=== PATIENT | female | born 1955 | race Caucasian/White ===

== ENCOUNTER → 2016-04-18 | Outpatient (CLI) | payer OTHER | LOC: MMPC 09:00 | PROVIDERS: ATTEND Internal Medicine | DX: Z79.01 Long term (current) use of anticoagulants (principal); Z51.81 Encounter for therapeutic drug level monitoring; Z86.711 Personal history of pulmonary embolism | CPT/HCPCS: 85610 ==

== ENCOUNTER → 2016-04-25 | Outpatient (CLI) | payer OTHER ==
[2016-04-25 10:58] LABS: BUN/CREATININE RATIO 31.66 (6-20); CALCIUM 9.5 mg/dL (8.7-10.7); CREATININE 1.2 mg/dL (0.50-1.20); POTASSIUM 4.8 meq/L (3.8-5.2)
== END ==
LOC: LAB 10:26
PROVIDERS: ATTEND Internal Medicine
DX: I50.9 Heart failure, unspecified (principal)
CPT/HCPCS: 36415; 80048; 83880

== ENCOUNTER → 2016-05-20 | Outpatient (CLI) | payer OTHER | LOC: MMPC 09:00 | PROVIDERS: ATTEND Internal Medicine | DX: Z79.01 Long term (current) use of anticoagulants (principal); Z51.81 Encounter for therapeutic drug level monitoring; Z86.711 Personal history of pulmonary embolism | CPT/HCPCS: 85610 ==

== ENCOUNTER → 2016-07-18 | Outpatient (CLI) | payer OTHER | LOC: MMPC 09:00 | PROVIDERS: ATTEND Internal Medicine | DX: Z79.01 Long term (current) use of anticoagulants (principal); Z51.81 Encounter for therapeutic drug level monitoring; Z86.711 Personal history of pulmonary embolism | CPT/HCPCS: 85610 ==

== ENCOUNTER → 2016-07-23 | Outpatient (CLI) | payer OTHER ==
[2016-07-23 09:40] LABS: BASOPHILS # (AUTO) 0.01 10*3/UL; BASOPHILS % (AUTO) 0.2 % (0-1); EOSINOPHILS % (AUTO) 1.8 % (0-8); HEMOGLOBIN 11.5 g/dL (12.0-16.0); LYMPHOCYTES # (AUTO) 1.59 10*3/uL; MEAN CORPUSCULAR HEMOGLOBIN 29.2 PG (27-31); MEAN CORPUSCULAR HGB CONC 31.1 g/dL (33-37); MEAN CORPUSCULAR VOLUME 93.9 FL (81-99); MEAN PLATELET VOLUME 9.7 FL (7.4-12.2); MONOCYTES # (AUTO) 0.48 10*3/UL (0.3-0.8); MONOCYTES % (AUTO) 8.7 % (5-15); NEUTROPHILS # (AUTO) 3.35 10*3/UL; NEUTROPHILS % (AUTO) 60.4 % (50-80); RED BLOOD COUNT 3.94 10^6/uL (4.20-5.40)
[2016-07-23 10:31] LABS: PLATELET MORPHOLOGY COMMENT NORMAL MORPHOLOGY (NORM); RBC MORPHOLOGY COMMENT NORMAL MORPHOLOGY (NORM); WBC MORPHOLOGY COMMENT NORMAL MORPHOLOGY (NORM)
[2016-07-23 11:01] LABS: CALCIUM 9.4 mg/dL (8.7-10.7); SERUM ALBUMIN 3.8 g/dL (3.5-4.8)
[2016-07-23 12:44] LABS: FERRITIN 43.1 ng/mL (12.00-336.70)
== END ==
LOC: LAB 09:26
PROVIDERS: ATTEND Internal Medicine
DX: I50.9 Heart failure, unspecified (principal); I48.91 Unspecified atrial fibrillation; G47.33 Obstructive sleep apnea (adult) (pediatric); E61.1 Iron deficiency; E03.9 Hypothyroidism, unspecified
CPT/HCPCS: 36415; 80053; 82728; 83880; 84443; 85025

== ENCOUNTER → 2016-07-24 | Outpatient (CLI) | payer OTHER | LOC: MMPC 11:11 | PROVIDERS: ATTEND Internal Medicine | DX: I50.9 Heart failure, unspecified (principal); I89.0 Lymphedema, not elsewhere classified; E66.01 Morbid (severe) obesity due to excess calories; G47.33 Obstructive sleep apnea (adult) (pediatric); J43.9 Emphysema, unspecified; I48.91 Unspecified atrial fibrillation; Z86.711 Personal history of pulmonary embolism | CPT/HCPCS: 99214; G0463 ==

== ENCOUNTER → 2016-08-15 | Outpatient (CLI) | payer OTHER | LOC: MMPC 09:00 | PROVIDERS: ATTEND Internal Medicine | DX: Z79.01 Long term (current) use of anticoagulants (principal); Z51.81 Encounter for therapeutic drug level monitoring; Z86.711 Personal history of pulmonary embolism | CPT/HCPCS: 85610 ==

== ENCOUNTER → 2016-08-26 | Outpatient (CLI) | payer OTHER ==
[2016-08-26 09:53] LABS: BUN/CREATININE RATIO 51.53 (6-20); CALCIUM 9.5 mg/dL (8.7-10.7); SERUM ALBUMIN 3.9 g/dL (3.5-4.8)
== END ==
LOC: LAB 09:14
PROVIDERS: ATTEND Internal Medicine
DX: I50.9 Heart failure, unspecified (principal)
CPT/HCPCS: 36415; 80053; 83880

== ENCOUNTER → 2016-08-27 | Outpatient (CLI) | payer OTHER | LOC: MMPC 09:00 | PROVIDERS: ATTEND Internal Medicine | DX: Z79.01 Long term (current) use of anticoagulants (principal); Z51.81 Encounter for therapeutic drug level monitoring; I48.91 Unspecified atrial fibrillation | CPT/HCPCS: 85610; 99214 ==

== ENCOUNTER → 2016-09-05 | Outpatient (CLI) | payer OTHER | LOC: MMPC 09:00 | PROVIDERS: ATTEND Internal Medicine | DX: Z79.01 Long term (current) use of anticoagulants (principal); Z51.81 Encounter for therapeutic drug level monitoring; I48.91 Unspecified atrial fibrillation | CPT/HCPCS: 85610 ==

== ENCOUNTER → 2016-09-12 | Outpatient (CLI) | payer OTHER | LOC: MMPC 09:00 | PROVIDERS: ATTEND Internal Medicine | DX: Z79.01 Long term (current) use of anticoagulants (principal); Z51.81 Encounter for therapeutic drug level monitoring; Z86.711 Personal history of pulmonary embolism | CPT/HCPCS: 85610 ==

== ENCOUNTER → 2016-09-26 | Outpatient (CLI) | payer OTHER | LOC: MMPC 09:00 | PROVIDERS: ATTEND Internal Medicine | DX: Z79.01 Long term (current) use of anticoagulants (principal); Z51.81 Encounter for therapeutic drug level monitoring; Z86.711 Personal history of pulmonary embolism | CPT/HCPCS: 85610 ==

== ENCOUNTER → 2016-10-24 | Outpatient (CLI) | payer OTHER | LOC: MMPC 09:00 | PROVIDERS: ATTEND Internal Medicine | DX: Z79.01 Long term (current) use of anticoagulants (principal); Z51.81 Encounter for therapeutic drug level monitoring; I48.91 Unspecified atrial fibrillation; Z86.711 Personal history of pulmonary embolism | CPT/HCPCS: 85610 ==

== ENCOUNTER → 2016-10-31 | Outpatient (CLI) | payer OTHER | LOC: MMPC 09:00 | PROVIDERS: ATTEND Internal Medicine | DX: Z79.01 Long term (current) use of anticoagulants (principal); Z51.81 Encounter for therapeutic drug level monitoring; I48.91 Unspecified atrial fibrillation | CPT/HCPCS: 85610 ==

== ENCOUNTER → 2016-11-14 | Outpatient (CLI) | payer OTHER | LOC: MMPC 09:00 | PROVIDERS: ATTEND Internal Medicine | DX: Z79.01 Long term (current) use of anticoagulants (principal); Z51.81 Encounter for therapeutic drug level monitoring; I48.91 Unspecified atrial fibrillation; Z86.711 Personal history of pulmonary embolism | CPT/HCPCS: 85610 ==

== ENCOUNTER → 2016-11-21 | Outpatient (CLI) | payer OTHER | LOC: MMPC 09:00 | PROVIDERS: ATTEND Internal Medicine | DX: Z79.01 Long term (current) use of anticoagulants (principal); Z51.81 Encounter for therapeutic drug level monitoring; I48.91 Unspecified atrial fibrillation | CPT/HCPCS: 85610 ==

== ENCOUNTER 2019-01-12 13:05 | Inpatient (IN) ==
[2019-01-12] MEDS ORDERED: Sodium Chloride 0.9% 1,000 ML PRIMARY IV ONE (13:52)
[2019-01-12 14:08] LABS: VENOUS PH 7.27 (7.32-7.42)
[2019-01-12 14:16] LABS: Hematocrit [HCT] 37.9 % (37.0-47.0); Hemoglobin [HGB] 11.9 g/dL (12.0-16.0); MEAN CORPUSCULAR HGB CONC 31.4 g/dL (33-37); MEAN CORPUSCULAR VOLUME 96.4 FL (81-99); MEAN PLATELET VOLUME 10.3 FL (7.4-12.2); NEUTROPHILS % (AUTO) 70.7 % (50-80); RED BLOOD COUNT 3.93 10^6/uL (4.20-5.40)
[2019-01-12 14:17] LABS: BASOPHILS # (AUTO) 0.01 10*3/UL; BASOPHILS % (AUTO) 0.1 % (0-1); EOSINOPHILS # (AUTO) 0.18 10*3/UL; EOSINOPHILS % (AUTO) 2.4 % (0-8); LYMPHOCYTES # (AUTO) 1.43 10*3/uL; MONOCYTES # (AUTO) 0.54 10*3/UL (0.3-0.8); MONOCYTES % (AUTO) 7.3 % (5-15); NEUTROPHILS # (AUTO) 5.21 10*3/UL; PLATELET MORPHOLOGY COMMENT NORMAL MORPHOLOGY (NORM); RBC MORPHOLOGY COMMENT NORMAL MORPHOLOGY (NORM); WBC MORPHOLOGY COMMENT NORMAL MORPHOLOGY (NORM)
[2019-01-12 14:18] LABS: BILIRUBIN,URINE NEGATIVE (NEG); CLARITY,URINE CLEAR (CLEAR); COLOR,URINE YELLOW (Y); GLUCOSE, URINE (UA) NEGATIVE (NEG); OCCULT BLOOD,URINE Trace-intact (NEG); PROTEIN,URINE NEGATIVE (NEG); SERUM ALBUMIN 4.3 g/dL (3.5-4.8); UROBILINOGEN,URINE 0.2 EU/dL (0.2)
[2019-01-12 14:28] LABS: BACTERIA,URINE RARE; RBC,URINE 0 /hpf; SQUAMOUS EPITHELIAL CELL,UR FEW; URINE SAMPLE TYPE CLEAN CATCH URINE
[2019-01-12] MEDS ORDERED: ACETAMINOPHEN 325 MG TABLET PO PRN (18:23)
[2019-01-12] MEDS ORDERED: LIDOCAINE W/ SODIUM BICARB 0.5 ML SYR SUBD PRN (18:23)
[2019-01-12] MEDS ORDERED: ONDANSETRON 4 MG/2 ML VIAL IVP PRN (18:23)
[2019-01-12] MEDS ORDERED: DOCUSATE 100 MG CAPSULE PO PRN (18:23)
[2019-01-12] MEDS ORDERED: FLUTICASONE/SALMETEROL 500/50 UD INHALER INH PRN (18:23)
[2019-01-12] MEDS ORDERED: LEVOTHYROXINE SODIUM 150 MCG PO SCH (18:23)
[2019-01-12] MEDS ORDERED: CALCIUM CARBONATE 500 MG (TUMS) CHEWABLE TABLET PO PRN (18:23)
[2019-01-12 21:04] LABS: BUN/CREATININE RATIO 33.33 (6-20); SERUM ALBUMIN 3.6 g/dL (3.5-4.8)
[2019-01-12] MEDS: Apixaban 5 MG TABLET PO SCH (21:15)
[2019-01-12] MEDS: CARVEDILOL 12.5 MG TABLET PO SCH (21:15)
[2019-01-12] MEDS: Sodium Chloride 0.9% 1,000 ML PRIMARY IV SCH (21:15)
[2019-01-12] MEDS ORDERED: FLUTICASONE/SALMETEROL 500/50 UD INHALER INH ONE (21:59)
[2019-01-13] MEDS ORDERED: Levothyroxine Sodium 100 MCG, Levothyroxine Sodium 50 MCG PO SCH ×2 (05:30)
[2019-01-13 05:37] LABS: BUN/CREATININE RATIO 34.54 (6-20); SERUM ALBUMIN 3.7 g/dL (3.5-4.8)
[2019-01-13] MEDS ORDERED: FLUTICASONE/SALMETEROL 500/50 UD INHALER INH SCH (07:00)
[2019-01-13 07:11] VITALS: BP 106/55; RESP 16; TEMP 97.9; O2SAT 99
[2019-01-13] MEDS: Sodium Chloride 0.9% 1,000 ML PRIMARY IV SCH (07:43)
[2019-01-13] MEDS ORDERED: FERROUS SULFATE 325 MG TABLET PO SCH (09:00)
[2019-01-13] MEDS ORDERED: ASPIRIN 325 MG TABLET PO SCH (09:00)
[2019-01-13] MEDS: Apixaban 5 MG TABLET PO SCH (09:30)
[2019-01-13] MEDS: CARVEDILOL 12.5 MG TABLET PO SCH (09:30)
[2019-01-13] MEDS ORDERED: Influenza 19-20 Vaccine (6mo+) 60 MCG/0.5 ML SYRINGE IM ONE (10:46)
== END 2019-01-13 11:42 | disposition home or self-care (01) | DRG 641 ==
LOC: ER 13:05 → MED/SURG 17:07
PROVIDERS: ADMIT Internal Medicine; ATTEND Internal Medicine

== ENCOUNTER 2019-01-17 03:12 | Inpatient (IN) ==
[2019-01-17 04:37] LABS: VENOUS PH 7.29 (7.32-7.42)
[2019-01-17 04:49] LABS: BASOPHILS # (AUTO) 0.01 10*3/UL; BASOPHILS % (AUTO) 0.1 % (0-1); EOSINOPHILS % (AUTO) 1.4 % (0-8); Hematocrit [HCT] 30.4 % (37.0-47.0); Hemoglobin [HGB] 10.2 g/dL (12.0-16.0); LYMPHOCYTES # (AUTO) 0.74 10*3/uL; MEAN CORPUSCULAR HGB CONC 33.6 g/dL (33-37); MEAN CORPUSCULAR VOLUME 93.3 FL (81-99); MEAN PLATELET VOLUME 9.6 FL (7.4-12.2); MONOCYTES # (AUTO) 0.49 10*3/UL (0.3-0.8); MONOCYTES % (AUTO) 6.7 % (5-15); NEUTROPHILS # (AUTO) 5.95 10*3/UL; PLATELET MORPHOLOGY COMMENT NORMAL MORPHOLOGY (NORM); RBC MORPHOLOGY COMMENT NORMAL MORPHOLOGY (NORM); RED BLOOD COUNT 3.26 10^6/uL (4.20-5.40); WBC MORPHOLOGY COMMENT NORMAL MORPHOLOGY (NORM)
[2019-01-17 04:51] LABS: BLOOD UREA NITROGEN 17 mg/dL (7-22); BUN/CREATININE RATIO 18.88 (6-20); SERUM ALBUMIN 3.6 g/dL (3.5-4.8)
[2019-01-17 05:23] LABS: Erythrocyte Sediment Rate 33 MM/HR (0-20)
[2019-01-17] MEDS ORDERED: FLUTICASONE/SALMETEROL 500/50 UD INHALER INH PRN (08:58)
[2019-01-17] MEDS ORDERED: CALCIUM CARBONATE 500 MG (TUMS) CHEWABLE TABLET PO PRN (09:04)
[2019-01-17] MEDS ORDERED: ONDANSETRON 4 MG/2 ML VIAL IVP PRN (09:04)
[2019-01-17] MEDS ORDERED: DOCUSATE 100 MG CAPSULE PO PRN (09:04)
[2019-01-17] MEDS ORDERED: LIDOCAINE W/ SODIUM BICARB 0.5 ML SYR SUBD PRN (09:04)
[2019-01-17] MEDS: ACETAMINOPHEN 325 MG TABLET PO PRN ×2 (11:05→19:35)
[2019-01-17] MEDS: CARVEDILOL 12.5 MG TABLET PO SCH ×2 (11:06→21:39)
[2019-01-17] MEDS: ASPIRIN 325 MG TABLET PO SCH (11:06)
[2019-01-17] MEDS: Apixaban 5 MG TABLET PO SCH ×2 (11:06→21:39)
[2019-01-17] MEDS: FERROUS SULFATE 325 MG TABLET PO SCH (11:06)
[2019-01-17] MEDS: FUROSEMIDE 20 MG TABLET PO SCH ×2 (11:13→13:54)
[2019-01-17] MEDS: UMECLIDINIUM BROMIDE INH SCH (13:15)
[2019-01-17] MEDS: FLUTICASONE/SALMETEROL 500/50 UD INHALER INH SCH (19:05)
[2019-01-18] MEDS: ACETAMINOPHEN 325 MG TABLET PO PRN ×4 (03:25→21:10)
[2019-01-18 05:17] LABS: BLOOD UREA NITROGEN 14 mg/dL (7-22); BUN/CREATININE RATIO 15.55 (6-20)
[2019-01-18] MEDS: LEVOTHYROXINE 100 MCG TABLET PO SCH (05:24)
[2019-01-18] MEDS: FLUTICASONE/SALMETEROL 500/50 UD INHALER INH SCH ×2 (06:46→19:20)
[2019-01-18] MEDS: FUROSEMIDE 20 MG TABLET PO SCH ×2 (06:52→13:07)
[2019-01-18] MEDS: UMECLIDINIUM BROMIDE INH SCH ×2 (08:11→09:23)
[2019-01-18] MEDS: FERROUS SULFATE 325 MG TABLET PO SCH (08:39)
[2019-01-18] MEDS: Apixaban 5 MG TABLET PO SCH ×2 (08:39→21:03)
[2019-01-18] MEDS: ASPIRIN 325 MG TABLET PO SCH (08:39)
[2019-01-18] MEDS: CARVEDILOL 12.5 MG TABLET PO SCH ×2 (08:39→21:02)
[2019-01-18] MEDS: NYSTATIN 15 GM POWDER TOPICAL SCH ×2 (15:20→21:02)
[2019-01-19] MEDS: LEVOTHYROXINE 100 MCG TABLET PO SCH (05:37)
[2019-01-19] MEDS: ACETAMINOPHEN 325 MG TABLET PO PRN ×3 (05:40→19:36)
[2019-01-19] MEDS: FLUTICASONE/SALMETEROL 500/50 UD INHALER INH SCH ×2 (06:50→19:24)
[2019-01-19] MEDS: FUROSEMIDE 20 MG TABLET PO SCH ×2 (07:08→12:49)
[2019-01-19] MEDS: CARVEDILOL 12.5 MG TABLET PO SCH ×2 (09:08→20:17)
[2019-01-19] MEDS: NYSTATIN 15 GM POWDER TOPICAL SCH ×3 (09:08→23:58)
[2019-01-19] MEDS: Apixaban 5 MG TABLET PO SCH ×2 (09:08→20:18)
[2019-01-19] MEDS: FERROUS SULFATE 325 MG TABLET PO SCH ×2 (09:08→23:58)
[2019-01-19] MEDS: ASPIRIN 325 MG TABLET PO SCH (09:08)
[2019-01-19] MEDS: UMECLIDINIUM BROMIDE INH SCH (09:11)
[2019-01-20] MEDS: ACETAMINOPHEN 325 MG TABLET PO PRN ×3 (04:07→20:05)
[2019-01-20] MEDS: LEVOTHYROXINE 100 MCG TABLET PO SCH (05:43)
[2019-01-20] MEDS: FLUTICASONE/SALMETEROL 500/50 UD INHALER INH SCH ×2 (06:37→20:38)
[2019-01-20] MEDS: UMECLIDINIUM BROMIDE INH SCH (06:37)
[2019-01-20] MEDS: FUROSEMIDE 20 MG TABLET PO SCH ×2 (06:50→13:24)
[2019-01-20] MEDS: CARVEDILOL 12.5 MG TABLET PO SCH ×2 (09:00→20:05)
[2019-01-20] MEDS: Apixaban 5 MG TABLET PO SCH ×2 (09:01→20:06)
[2019-01-20] MEDS: ASPIRIN 325 MG TABLET PO SCH (09:01)
[2019-01-20] MEDS: FERROUS SULFATE 325 MG TABLET PO SCH ×2 (09:01→20:05)
[2019-01-20 11:17] LABS: BLOOD UREA NITROGEN 13 mg/dL (7-22); BUN/CREATININE RATIO 16.25 (6-20)
[2019-01-20] MEDS: NYSTATIN 15 GM POWDER TOPICAL SCH ×3 (11:36→20:06)
[2019-01-20] MEDS ORDERED: CHOLECALCIFEROL 1000 IU TABLET PO ONE (12:43)
[2019-01-21] MEDS: ACETAMINOPHEN 325 MG TABLET PO PRN ×2 (03:14→17:30)
[2019-01-21] MEDS: LEVOTHYROXINE 100 MCG TABLET PO SCH (05:44)
[2019-01-21] MEDS: FUROSEMIDE 20 MG TABLET PO SCH ×2 (06:32→13:12)
[2019-01-21] MEDS: UMECLIDINIUM BROMIDE INH SCH (06:40)
[2019-01-21] MEDS: FLUTICASONE/SALMETEROL 500/50 UD INHALER INH SCH ×2 (06:40→18:57)
[2019-01-21] MEDS: FERROUS SULFATE 325 MG TABLET PO SCH ×2 (08:43→20:54)
[2019-01-21] MEDS: CARVEDILOL 12.5 MG TABLET PO SCH ×2 (08:43→20:54)
[2019-01-21] MEDS: Apixaban 5 MG TABLET PO SCH ×2 (08:43→20:54)
[2019-01-21] MEDS: ASPIRIN 325 MG TABLET PO SCH (08:44)
[2019-01-21] MEDS: CHOLECALCIFEROL 1000 IU TABLET PO SCH (08:48)
[2019-01-21] MEDS: NYSTATIN 15 GM POWDER TOPICAL SCH ×4 (09:15→20:54)
[2019-01-22] MEDS: ACETAMINOPHEN 325 MG TABLET PO PRN ×3 (01:25→14:46)
[2019-01-22] MEDS: LEVOTHYROXINE 100 MCG TABLET PO SCH (05:31)
[2019-01-22] MEDS: UMECLIDINIUM BROMIDE INH SCH (06:37)
[2019-01-22] MEDS: FLUTICASONE/SALMETEROL 500/50 UD INHALER INH SCH ×2 (06:37→19:36)
[2019-01-22] MEDS: FUROSEMIDE 20 MG TABLET PO SCH ×2 (07:14→13:03)
[2019-01-22] MEDS: Apixaban 5 MG TABLET PO SCH ×2 (08:54→21:05)
[2019-01-22] MEDS: CHOLECALCIFEROL 1000 IU TABLET PO SCH (08:54)
[2019-01-22] MEDS: ASPIRIN 325 MG TABLET PO SCH (08:54)
[2019-01-22] MEDS: CARVEDILOL 12.5 MG TABLET PO SCH ×2 (08:55→21:05)
[2019-01-22] MEDS: FERROUS SULFATE 325 MG TABLET PO SCH ×2 (08:55→21:05)
[2019-01-22] MEDS: NYSTATIN 15 GM POWDER TOPICAL SCH ×3 (09:49→21:25)
[2019-01-22 10:50] LABS: BLOOD UREA NITROGEN 15 mg/dL (7-22); BUN/CREATININE RATIO 18.75 (6-20)
[2019-01-23] MEDS: LEVOTHYROXINE 100 MCG TABLET PO SCH (05:54)
[2019-01-23] MEDS: ACETAMINOPHEN 325 MG TABLET PO PRN ×2 (06:16→12:07)
[2019-01-23] MEDS: FLUTICASONE/SALMETEROL 500/50 UD INHALER INH SCH (06:34)
[2019-01-23] MEDS: UMECLIDINIUM BROMIDE INH SCH (06:35)
[2019-01-23 08:14] VITALS: RESP 20
[2019-01-23] MEDS: CHOLECALCIFEROL 1000 IU TABLET PO SCH (08:29)
[2019-01-23] MEDS: CARVEDILOL 12.5 MG TABLET PO SCH (08:30)
[2019-01-23] MEDS: Apixaban 5 MG TABLET PO SCH (08:30)
[2019-01-23] MEDS: FUROSEMIDE 20 MG TABLET PO SCH ×2 (08:31→12:07)
[2019-01-23] MEDS: ASPIRIN 325 MG TABLET PO SCH (08:31)
[2019-01-23] MEDS: FERROUS SULFATE 325 MG TABLET PO SCH (08:31)
[2019-01-23] MEDS: NYSTATIN 15 GM POWDER TOPICAL SCH ×2 (08:31→14:17)
[2019-01-23 16:28] VITALS: BP 132/48; TEMP 98; O2SAT 96
== END 2019-01-23 17:11 | disposition swing bed (61) | DRG 175 ==
LOC: MED/SURG 03:12 → ER 03:12 → MED/SURG 08:11
PROVIDERS: ADMIT Internal Medicine; ATTEND Internal Medicine

== ENCOUNTER 2019-01-28 12:20 | Inpatient (IN) ==
[2019-01-28] MEDS ORDERED: DOCUSATE 100 MG CAPSULE PO PRN (12:31)
[2019-01-28] MEDS ORDERED: CALCIUM CARBONATE 500 MG (TUMS) CHEWABLE TABLET PO PRN (12:31)
[2019-01-28] MEDS ORDERED: LIDOCAINE HCL 2 % 10 ML JELLY URO-JECT TOPICAL PRN (12:31)
[2019-01-28] MEDS: FUROSEMIDE 20 MG TABLET PO SCH (14:14)
[2019-01-28] MEDS: ceFAZolin Inj 2gm (Premix) 2 GM/50 ML BAG IV SCH ×2 (15:02→23:28)
[2019-01-28 15:09] LABS: SERUM ALBUMIN 4.1 g/dL (3.5-4.8)
[2019-01-28 15:50] LABS: BASOPHILS # (AUTO) 0.02 10*3/UL; BASOPHILS % (AUTO) 0.3 % (0-1); EOSINOPHILS # (AUTO) 0.08 10*3/UL; EOSINOPHILS % (AUTO) 1.4 % (0-8); Hematocrit [HCT] 36.1 % (37.0-47.0); Hemoglobin [HGB] 11.3 g/dL (12.0-16.0); LYMPHOCYTES # (AUTO) 1.14 10*3/uL; MEAN CORPUSCULAR HGB CONC 31.3 g/dL (33-37); MEAN CORPUSCULAR VOLUME 95.8 FL (81-99); MEAN PLATELET VOLUME 9.5 FL (7.4-12.2); NEUTROPHILS # (AUTO) 4.09 10*3/UL; NEUTROPHILS % (AUTO) 71.2 % (50-80); RED BLOOD COUNT 3.77 10^6/uL (4.20-5.40)
[2019-01-28 15:57] LABS: PLATELET MORPHOLOGY COMMENT NORMAL MORPHOLOGY (NORM); RBC MORPHOLOGY COMMENT NORMAL MORPHOLOGY (NORM); WBC MORPHOLOGY COMMENT NORMAL MORPHOLOGY (NORM)
[2019-01-28] MEDS: NYSTATIN 15 GM POWDER TOPICAL SCH ×2 (16:05→21:18)
[2019-01-28] MEDS: FLUTICASONE/SALMETEROL 500/50 UD INHALER INH SCH (18:31)
[2019-01-28] MEDS ORDERED: ceFAZolin Inj 2 GM in Sodium Chloride 0.9% 100 ML IV SCH (19:30)
[2019-01-28] MEDS ORDERED: ceFAZolin Inj 2gm (Premix) 2 GM/50 ML BAG IV SCH (19:30)
[2019-01-28] MEDS: Apixaban 5 MG TABLET PO SCH (21:14)
[2019-01-28] MEDS: CARVEDILOL 12.5 MG TABLET PO SCH (21:14)
[2019-01-28] MEDS: FERROUS SULFATE 325 MG TABLET PO SCH (21:14)
[2019-01-28] MEDS: ACETAMINOPHEN 325 MG TABLET PO PRN (21:17)
[2019-01-29] MEDS: LEVOTHYROXINE 100 MCG TABLET PO SCH (05:14)
[2019-01-29 05:33] LABS: BASOPHILS # (AUTO) 0.02 10*3/UL; BASOPHILS % (AUTO) 0.5 % (0-1); EOSINOPHILS # (AUTO) 0.05 10*3/UL; EOSINOPHILS % (AUTO) 1.2 % (0-8); Hematocrit [HCT] 31.6 % (37.0-47.0); Hemoglobin [HGB] 10.1 g/dL (12.0-16.0); LYMPHOCYTES # (AUTO) 0.88 10*3/uL; MEAN CORPUSCULAR VOLUME 95.8 FL (81-99); MEAN PLATELET VOLUME 9.4 FL (7.4-12.2); MONOCYTES # (AUTO) 0.35 10*3/UL (0.3-0.8); MONOCYTES % (AUTO) 8.7 % (5-15); NEUTROPHILS # (AUTO) 2.71 10*3/UL; NEUTROPHILS % (AUTO) 67.5 % (50-80)
[2019-01-29 05:35] LABS: PLATELET MORPHOLOGY COMMENT NORMAL MORPHOLOGY (NORM); RBC MORPHOLOGY COMMENT NORMAL MORPHOLOGY (NORM); WBC MORPHOLOGY COMMENT NORMAL MORPHOLOGY (NORM)
[2019-01-29 05:46] LABS: BLOOD UREA NITROGEN 13 mg/dL (7-22); BUN/CREATININE RATIO 16.25 (6-20); SERUM ALBUMIN 3.2 g/dL (3.5-4.8)
[2019-01-29] MEDS: ceFAZolin Inj 2gm (Premix) 2 GM/50 ML BAG IV SCH ×3 (05:57→22:47)
[2019-01-29] MEDS: FLUTICASONE/SALMETEROL 500/50 UD INHALER INH SCH ×2 (06:49→19:04)
[2019-01-29] MEDS: UMECLIDINIUM BROMIDE INH SCH (06:51)
[2019-01-29] MEDS ORDERED: Magnesium Sulfate 2gm (Premix) 2 GM/50 ML BAG IV ONE (08:19)
[2019-01-29] MEDS: ASPIRIN 325 MG TABLET PO SCH (09:28)
[2019-01-29] MEDS: ACETAMINOPHEN 325 MG TABLET PO PRN ×3 (09:28→22:45)
[2019-01-29] MEDS: FERROUS SULFATE 325 MG TABLET PO SCH ×2 (09:29→20:32)
[2019-01-29] MEDS: Apixaban 5 MG TABLET PO SCH ×2 (09:29→20:31)
[2019-01-29] MEDS: CARVEDILOL 12.5 MG TABLET PO SCH ×2 (09:29→20:32)
[2019-01-29] MEDS: POTASSIUM CHLORIDE 20 MEQ TAB PO SCH ×3 (09:29→20:31)
[2019-01-29] MEDS: CHOLECALCIFEROL 1000 IU TABLET PO SCH (09:30)
[2019-01-29] MEDS: NYSTATIN 15 GM POWDER TOPICAL SCH ×3 (09:30→20:38)
[2019-01-29] MEDS: FUROSEMIDE 20 MG TABLET PO SCH ×2 (12:00→14:52)
[2019-01-30] MEDS: LEVOTHYROXINE 100 MCG TABLET PO SCH (06:02)
[2019-01-30] MEDS: ceFAZolin Inj 2gm (Premix) 2 GM/50 ML BAG IV SCH ×3 (06:02→23:06)
[2019-01-30] MEDS: UMECLIDINIUM BROMIDE INH SCH (06:50)
[2019-01-30] MEDS: FLUTICASONE/SALMETEROL 500/50 UD INHALER INH SCH ×2 (06:50→19:54)
[2019-01-30] MEDS: CHOLECALCIFEROL 1000 IU TABLET PO SCH (08:21)
[2019-01-30] MEDS: Apixaban 5 MG TABLET PO SCH ×2 (08:22→20:39)
[2019-01-30] MEDS: ASPIRIN 325 MG TABLET PO SCH (08:22)
[2019-01-30] MEDS: CARVEDILOL 12.5 MG TABLET PO SCH ×2 (08:22→20:38)
[2019-01-30] MEDS: FERROUS SULFATE 325 MG TABLET PO SCH ×2 (08:23→20:38)
[2019-01-30] MEDS: FUROSEMIDE 20 MG TABLET PO SCH ×2 (08:52→16:21)
[2019-01-30] MEDS: ACETAMINOPHEN 325 MG TABLET PO PRN ×2 (09:02→20:39)
[2019-01-30] MEDS: NYSTATIN 15 GM POWDER TOPICAL SCH ×2 (09:03→20:48)
[2019-01-30 10:38] LABS: BLOOD UREA NITROGEN 18 mg/dL (7-22)
[2019-01-30] MEDS: POTASSIUM CHLORIDE 20 MEQ TAB PO SCH ×3 (11:06→20:38)
[2019-01-31] MEDS: ACETAMINOPHEN 325 MG TABLET PO PRN ×3 (04:45→20:48)
[2019-01-31] MEDS: LEVOTHYROXINE 100 MCG TABLET PO SCH (04:45)
[2019-01-31] MEDS: ceFAZolin Inj 2gm (Premix) 2 GM/50 ML BAG IV SCH ×3 (05:50→22:04)
[2019-01-31 06:06] LABS: BASOPHILS # (AUTO) 0.01 10*3/UL; BASOPHILS % (AUTO) 0.2 % (0-1); EOSINOPHILS # (AUTO) 0.05 10*3/UL; LYMPHOCYTES # (AUTO) 0.94 10*3/uL; MEAN CORPUSCULAR HGB CONC 30.6 g/dL (33-37); MEAN PLATELET VOLUME 9.4 FL (7.4-12.2); MONOCYTES # (AUTO) 0.44 10*3/UL (0.3-0.8); MONOCYTES % (AUTO) 8.5 % (5-15); NEUTROPHILS # (AUTO) 3.72 10*3/UL; NEUTROPHILS % (AUTO) 71.6 % (50-80); RED BLOOD COUNT 3.71 10^6/uL (4.20-5.40)
[2019-01-31 06:17] LABS: PLATELET MORPHOLOGY COMMENT NORMAL MORPHOLOGY (NORM); RBC MORPHOLOGY COMMENT NORMAL MORPHOLOGY (NORM); WBC MORPHOLOGY COMMENT NORMAL MORPHOLOGY (NORM)
[2019-01-31 06:34] LABS: BLOOD UREA NITROGEN 19 mg/dL (7-22); BUN/CREATININE RATIO 21.11 (6-20); SERUM ALBUMIN 3.7 g/dL (3.5-4.8)
[2019-01-31] MEDS: FLUTICASONE/SALMETEROL 500/50 UD INHALER INH SCH ×3 (06:42→19:26)
[2019-01-31] MEDS: UMECLIDINIUM BROMIDE INH SCH ×3 (06:44→07:01)
[2019-01-31] MEDS: NYSTATIN 15 GM POWDER TOPICAL SCH ×4 (06:59→20:52)
[2019-01-31] MEDS: CHOLECALCIFEROL 1000 IU TABLET PO SCH (08:18)
[2019-01-31] MEDS: Apixaban 5 MG TABLET PO SCH ×2 (08:18→20:48)
[2019-01-31] MEDS: POTASSIUM CHLORIDE 20 MEQ TAB PO SCH ×3 (08:18→20:47)
[2019-01-31] MEDS: CARVEDILOL 12.5 MG TABLET PO SCH ×2 (08:18→20:48)
[2019-01-31] MEDS: FERROUS SULFATE 325 MG TABLET PO SCH ×2 (08:18→20:48)
[2019-01-31] MEDS: ASPIRIN 325 MG TABLET PO SCH (08:18)
[2019-01-31] MEDS ORDERED: Sodium Chloride 0.9% 50 ML ONE (14:19)
[2019-02-01 05:04] LABS: BLOOD UREA NITROGEN 20 mg/dL (7-22)
[2019-02-01] MEDS: LEVOTHYROXINE 100 MCG TABLET PO SCH (05:07)
[2019-02-01] MEDS: ACETAMINOPHEN 325 MG TABLET PO PRN ×3 (05:07→17:55)
[2019-02-01] MEDS: ceFAZolin Inj 2gm (Premix) 2 GM/50 ML BAG IV SCH ×3 (06:04→22:35)
[2019-02-01] MEDS: FLUTICASONE/SALMETEROL 500/50 UD INHALER INH SCH ×2 (07:03→19:14)
[2019-02-01] MEDS: ASPIRIN 325 MG TABLET PO SCH (08:34)
[2019-02-01] MEDS: Apixaban 5 MG TABLET PO SCH ×2 (08:34→21:20)
[2019-02-01] MEDS: POTASSIUM CHLORIDE 20 MEQ TAB PO SCH ×3 (08:34→21:19)
[2019-02-01] MEDS: CARVEDILOL 12.5 MG TABLET PO SCH ×2 (08:34→21:19)
[2019-02-01] MEDS: CHOLECALCIFEROL 1000 IU TABLET PO SCH (08:34)
[2019-02-01] MEDS: FERROUS SULFATE 325 MG TABLET PO SCH ×2 (08:34→21:19)
[2019-02-01] MEDS: NYSTATIN 15 GM POWDER TOPICAL SCH ×3 (08:39→21:20)
[2019-02-01] MEDS: UMECLIDINIUM BROMIDE INH SCH (10:25)
[2019-02-01] MEDS: FUROSEMIDE 10 MG/1 ML - 2 ML VIAL IVP SCH (12:17)
[2019-02-02] MEDS: LEVOTHYROXINE 100 MCG TABLET PO SCH (04:30)
[2019-02-02] MEDS: ACETAMINOPHEN 325 MG TABLET PO PRN (05:32)
[2019-02-02 05:55] LABS: BLOOD UREA NITROGEN 25 mg/dL (7-22); BUN/CREATININE RATIO 27.77 (6-20)
[2019-02-02] MEDS: ceFAZolin Inj 2gm (Premix) 2 GM/50 ML BAG IV SCH (06:45)
[2019-02-02] MEDS: FUROSEMIDE 10 MG/1 ML - 2 ML VIAL IVP SCH (06:47)
[2019-02-02 06:57] VITALS: BP 131/74; RESP 16; TEMP 98.2; O2SAT 99
[2019-02-02] MEDS: FLUTICASONE/SALMETEROL 500/50 UD INHALER INH SCH (07:10)
[2019-02-02] MEDS: UMECLIDINIUM BROMIDE INH SCH (07:11)
[2019-02-02] MEDS: POTASSIUM CHLORIDE 20 MEQ TAB PO SCH ×2 (08:37)
[2019-02-02] MEDS: CARVEDILOL 12.5 MG TABLET PO SCH (08:37)
[2019-02-02] MEDS: CHOLECALCIFEROL 1000 IU TABLET PO SCH (08:37)
[2019-02-02] MEDS: Apixaban 5 MG TABLET PO SCH (08:37)
[2019-02-02] MEDS: FERROUS SULFATE 325 MG TABLET PO SCH (08:38)
[2019-02-02] MEDS: ASPIRIN 325 MG TABLET PO SCH (08:38)
[2019-02-02] MEDS: NYSTATIN 15 GM POWDER TOPICAL SCH (09:25)
== END 2019-02-02 12:00 | DRG 292 ==
LOC: MED/SURG 12:20
PROVIDERS: ADMIT Internal Medicine; ATTEND Internal Medicine